=== PATIENT | male | born 1945 | race Caucasian/White ===

== ENCOUNTER 2016-12-04 12:01 | Outpatient (CLI) | payer MEDICARE ==
[2016-12-04 12:38] LABS: Anion Gap 20 mmol/L (10-20); BUN (Urea Nitrogen) 30 mg/dL (8.4-25.7); Calc. Creatinine Clearance 0 mL/min (70-130); Calcium 10.4 mg/dL (7.8-10.44); Carbon Dioxide 29 mmol/L (23-31); Chloride 96 mmol/L (98-107); Estimated GFR-MDRD 29; Glucose 151 mg/dL (83-110); Potassium 4.3 mmol/L (3.5-5.1); Sodium 141 mmol/L (136-145)
== END 2016-12-04 12:02 | disposition home or self-care (01) ==
LOC: MADLAB 12:01
PROVIDERS: ATTEND Internal Medicine Nephrology
DX: I12.9 Hypertensive chronic kidney disease with stage 1 through stage 4 chronic kidney disease, or unspecified chronic kidney disease (principal); N18.3 Chronic kidney disease, stage 3 (moderate)
CPT/HCPCS: 36415; 80048

== ENCOUNTER 2017-01-29 14:20 | Outpatient (CLI) | payer MEDICARE ==
[2017-01-29 14:48] LABS: Anion Gap 21 mmol/L (10-20); BUN (Urea Nitrogen) 28 mg/dL (8.4-25.7); Calc. Creatinine Clearance 0 mL/min (70-130); Carbon Dioxide 29 mmol/L (23-31); Chloride 98 mmol/L (98-107); Estimated GFR-MDRD 42; Glucose 166 mg/dL (83-110); Potassium 4.3 mmol/L (3.5-5.1); Sodium 144 mmol/L (136-145)
== END 2017-01-29 14:21 | disposition home or self-care (01) ==
LOC: MADLAB 14:20
PROVIDERS: ATTEND Internal Medicine Nephrology
DX: I12.9 Hypertensive chronic kidney disease with stage 1 through stage 4 chronic kidney disease, or unspecified chronic kidney disease (principal); N18.3 Chronic kidney disease, stage 3 (moderate); E11.00 Type 2 diabetes mellitus with hyperosmolarity without nonketotic hyperglycemic-hyperosmolar coma (NKHHC); R80.9 Proteinuria, unspecified; E87.2 Acidosis
CPT/HCPCS: 36415; 80048

== ENCOUNTER 2017-02-20 12:28 | Outpatient (CLI) | payer MEDICARE ==
[2017-02-20 13:25] LABS: #Basophils 0.2 thou/uL (0.0-0.2); #Eosinphils 0.3 thou/uL (0.0-0.7); #Lymphocytes 0.9 thou/uL (1.20-3.40); #Neutrophils 9.6 thou/uL (1.40-6.50); %Basophils 1.7 % (0.0-1.0); %Eosinophils 2.9 % (0.0-10.0); %Lymphocytes 7.7 % (21.0-51.0); %Monocytes 8.1 % (0.0-10.0); %Neutrophils 79.6 % (42.0-75.0); Hemoglobin 14.5 g/dL (14.0-18.0); Mean Corpuscular Hemoglobin 29.3 pg (27.0-31.0); Mean Corpuscular Volume 91.7 fl (80.0-94.0); Mean Platelet Volume 9.3 fL (7.4-10.4); Platelet Count 259 thou/uL (130-400); RBC Distribution Width 13.5 % (11.5-14.5); Red Blood Cell (RBC) Count 4.93 mill/uL (4.70-6.10)
[2017-02-20 13:27] LABS: Hemoglobin A1c 6.6 % (4.0-6.0)
[2017-02-20 13:43] LABS: Anion Gap 18 mmol/L (10-20); BUN (Urea Nitrogen) 30 mg/dL (8.4-25.7); Calc. Creatinine Clearance 0 mL/min (70-130); Calcium 10.6 mg/dL (7.8-10.44); Carbon Dioxide 27 mmol/L (23-31); Chloride 99 mmol/L (98-107); Estimated GFR-MDRD 39; Glucose 153 mg/dL (83-110); Potassium 4.4 mmol/L (3.5-5.1); Sodium 140 mmol/L (136-145)
== END 2017-02-20 12:29 | disposition home or self-care (01) ==
LOC: MADLABBHPM 12:28
PROVIDERS: ATTEND Family Medicine
DX: E11.9 Type 2 diabetes mellitus without complications (principal)
CPT/HCPCS: 36415; 80048; 83036; 85025

== ENCOUNTER 2017-02-28 16:31 | Outpatient (CLI) | payer MEDICARE ==
[2017-02-28 16:41] LABS: Bilirubin Negative (Negative); Blood, Urine Negative (Negative); Clarity Clear (Clear); Glucose, Urine (Dipstick) Negative (Negative); Leukocyte Negative (Negative); Nitrite Negative (Negative); Protein, Urine (Dipstick) Negative (Neg-Trace); Urobilinogen 0.2 mg/dL (0.2-1.0)
== END 2017-02-28 16:32 | disposition home or self-care (01) ==
LOC: MADLABBHPM 16:31
PROVIDERS: ATTEND Family Medicine
DX: N18.4 Chronic kidney disease, stage 4 (severe) (principal); N39.0 Urinary tract infection, site not specified
CPT/HCPCS: 81003; 87086

== ENCOUNTER 2017-06-04 13:55 | Outpatient (CLI) | payer MEDICARE ==
[2017-06-04 14:42] LABS: Anion Gap 20 mmol/L (10-20); BUN (Urea Nitrogen) 26 mg/dL (8.4-25.7); Calc. Creatinine Clearance 0 mL/min (70-130); Calcium 9.8 mg/dL (7.8-10.44); Carbon Dioxide 23 mmol/L (23-31); Chloride 102 mmol/L (98-107); Estimated GFR-MDRD 45; Glucose 227 mg/dL (83-110); Potassium 4.4 mmol/L (3.5-5.1); Sodium 141 mmol/L (136-145)
== END 2017-06-04 13:56 | disposition home or self-care (01) ==
LOC: MADLAB 13:55
PROVIDERS: ATTEND Internal Medicine Nephrology
DX: I13.10 Hypertensive heart and chronic kidney disease without heart failure, with stage 1 through stage 4 chronic kidney disease, or unspecified chronic kidney disease (principal); N18.3 Chronic kidney disease, stage 3 (moderate); R60.0 Localized edema
CPT/HCPCS: 36415; 80048

== ENCOUNTER 2017-09-06 07:11 | Emergency (ER) | payer MEDICARE ==
[2017-09-06 08:37] LABS: Bacteria/HPF Rare-Few HPF (None Seen); Bilirubin Negative (Negative); Blood, Urine Trace (Negative); Clarity Clear (Clear); Glucose, Urine (Dipstick) Negative (Negative); INR-International Normal Ratio 1.1; Leukocyte Negative (Negative); Nitrite Negative (Negative); PTT 28.3 SEC (22.9-36.1); Protein, Urine (Dipstick) 30 mg/dL (Neg-Trace); Prothrombin Time 14.4 SEC (12.0-14.7); RBC/HPF 0-3 HPF (0-3); Squamous Epithelial 0-3 HPF (0-3); Urobilinogen 0.2 mg/dL (0.2-1.0); WBC/HPF 0-3 HPF (0-3); pH, Urine 5.5 (5.0-9.0)
[2017-09-06 08:41] LABS: Eosinophils 2 % (0-10); Hemoglobin 14.7 g/dL (14.0-18.0); Lymphocytes 5 % (21-51); MDiff Complete? YES; Mean Corpuscular HGB CONC 32.3 g/dL (32.0-36.0); Mean Corpuscular Hemoglobin 30.1 pg (27.0-31.0); Mean Platelet Volume 8.5 fL (7.4-10.4); Monocytes 5 % (0-10); Neutrophil 88 % (42-75); Platelet Count 182 thou/uL (130-400); RBC Distribution Width 14.4 % (11.5-14.5); White Blood Cell (WBC) Count 18.7 thou/uL (4.8-10.8)
[2017-09-06 08:45] LABS: Amphetamine Not Detected (NotDetected); Barbiturates Screen Not Detected (NotDetected); Benzodiazepine Screen Not Detected (NotDetected); Cocaine Metabolite Screen Not Detected (NotDetected); Medtox Control Line Valid? VALID (VALID); Methadone Not Detected (NotDetected); Methamphetamine Not Detected (NotDetected); Opiate Screen Detected (NotDetected); Oxycodone Screen Not Detected (NotDetected); Phencyclidine (PCP) Not Detected (NotDetected); THC/Cannabinoid Screen Not Detected (NotDetected); Tricyclic Screen Not Detected (NotDetected)
[2017-09-06 08:46] LABS: ALT (SGPT) 11 U/L (8-55); AST (SGOT) 21 U/L (5-34); Albumin 3.8 g/dL (3.4-4.8); Alkaline Phosphatase 80 U/L (40-150); Anion Gap 15 mmol/L (10-20); BUN (Urea Nitrogen) 21 mg/dL (8.4-25.7); Bilirubin, Total 0.9 mg/dL (0.2-1.2); Calc. Creatinine Clearance 0 mL/min (70-130); Calcium 9.7 mg/dL (7.8-10.44); Carbon Dioxide 29 mmol/L (23-31); Chloride 102 mmol/L (98-107); Estimated GFR-MDRD 32; Globulin 2.7 g/dL (2.4-3.5); Glucose 121 mg/dL (83-110); Potassium 3.8 mmol/L (3.5-5.1); Protein, Total 6.5 g/dL (5.8-8.1); Sodium 142 mmol/L (136-145)
[2017-09-06] MEDS ORDERED: Triple Antibiotic Oint 1 GM Packet ONE (08:46)
[2017-09-06 08:52] LABS: D-Dimer Test 6.6 *mcg/mL (0.27-0.43)
[2017-09-06 09:33] LABS: CKMB 4.9 ng/mL (0-6.6); Troponin I 0.078 ng/mL (< 0.028)
--- NOTE | 2017-09-06 09:34 | RAD ---
PORTABLE CHEST: HISTORY: Syncope. FINDINGS: AP chest is obtained on 09/06/17. Comparison is made to previous exam from 03/06/10. AP view chest demonstrates EKG leads seen over the chest. Cardiomegaly is seen. Pulmonary vascular congestion is seen. Radiographic appearance of the chest is stable and unchanged since the previou s exam from 2009. IMPRESSION: Cardiomegaly and pulmonary vascular congestion. No significant acute intrathoracic abnormality is s een. POS: [facility]
[2017-09-06] MEDS ORDERED: Sodium Chloride 0.9% 1,000 ML BAG ONE (09:44)
--- NOTE | 2017-09-06 09:46 | CT ---
CT HEAD NONCONTRAST: HISTORY: Altered mental status. FINDINGS: No comparison. There is no evidence of acute intracranial hemorrhage or infarct. The ventricles ap pear normal in size, shape, and position. Mild chronic ischemic small-vessel disease is apparent wi thin the periventricular white matter of each cerebral hemisphere. There is no mass effect or shift of midline structures. Visualized paranasal sinuses remain well aerated. Well-corticated cortical thickening along the left parietal calvarium is noted. IMPRESSION: No acute intracranial abnormalities are demonstrated on noncontrast CT head. POS: [facility]
[2017-09-06] MEDS ORDERED: Enoxaparin Sodium 80 MG/0.8 ML SYRINGE ONE (09:57)
== END 2017-09-06 11:00 | disposition short-term general hospital (02) ==
LOC: MADERS 07:11
DX: R41.82 Altered mental status, unspecified (principal); D72.829 Elevated white blood cell count, unspecified; R79.89 Other specified abnormal findings of blood chemistry; I25.10 Atherosclerotic heart disease of native coronary artery without angina pectoris; I11.0 Hypertensive heart disease with heart failure; I50.9 Heart failure, unspecified; E78.5 Hyperlipidemia, unspecified; E66.9 Obesity, unspecified; Z79.899 Other long term (current) drug therapy
CPT/HCPCS: 36415; 36416; 51701; 70450; 71010; 80053; 80306; 81003; 81015; 82553; 83605; 83880; 84484; 85025; 85379; 85610; 85730; 93005; 94760; 96372; J1650; J7050

== ENCOUNTER 2017-09-14 03:32 | Emergency (ER) | payer MEDICARE ==
[2017-09-14 04:38] LABS: ALT (SGPT) 13 U/L (8-55); AST (SGOT) 12 U/L (5-34); Albumin 3.4 g/dL (3.4-4.8); Alkaline Phosphatase 76 U/L (40-150); Anion Gap 13 mmol/L (10-20); BUN (Urea Nitrogen) 20 mg/dL (8.4-25.7); Bilirubin, Total 0.5 mg/dL (0.2-1.2); Calc. Creatinine Clearance 0 mL/min (70-130); Calcium 10.2 mg/dL (7.8-10.44); Carbon Dioxide 35 mmol/L (23-31); Chloride 96 mmol/L (98-107); Estimated GFR-MDRD 51; Globulin 2.9 g/dL (2.4-3.5); Glucose 179 mg/dL (83-110); Hemoglobin 12.7 g/dL (14.0-18.0); Mean Corpuscular HGB CONC 32.7 g/dL (32.0-36.0); Mean Corpuscular Hemoglobin 30.7 pg (27.0-31.0); Mean Corpuscular Volume 93.7 fl (80.0-94.0); Mean Platelet Volume 7.6 fL (7.4-10.4); Platelet Count 231 thou/uL (130-400); Potassium 3.9 mmol/L (3.5-5.1); Protein, Total 6.3 g/dL (5.8-8.1); RBC Distribution Width 14.3 % (11.5-14.5); Red Blood Cell (RBC) Count 4.14 mill/uL (4.70-6.10); Sodium 140 mmol/L (136-145); White Blood Cell (WBC) Count 9.1 thou/uL (4.8-10.8)
[2017-09-14 04:39] LABS: Anisocytosis SLIGHT = 6-15 cells (100X) (0-5/hpf); Eosinophils 1 % (0-10); Hypochromia SLIGHT = 6-15 cells (100X) (0-5/hpf); Lymphocytes 10 % (21-51); MDiff Complete? YES; Macrocytosis SLIGHT = 6-15 cells (100X) (0-5/hpf); Monocytes 5 % (0-10); Neutrophil 84 % (42-75); PLT Morphology Comment Appears Adequate; Poikilocytosis SLIGHT = 6-15 cells (100X) (0-5/hpf); RBC Morphology ABNORMAL
[2017-09-14 04:40] LABS: Acetaminophen Less than 6.0 mcg/mL (10.0-30.0); Alcohol Less than 10 mg/dL (Less than 10); Salicylate Less than 8.0 mg/dL (15.0-30.0)
[2017-09-14 04:49] LABS: Bilirubin Negative (Negative); Blood, Urine Trace (Negative); Clarity Clear (Clear); Glucose, Urine (Dipstick) Negative (Negative); Leukocyte Negative (Negative); Nitrite Negative (Negative); Protein, Urine (Dipstick) Negative (Neg-Trace); Specific Gravity, Urine 1.015 (1.005-1.030); Urobilinogen 0.2 mg/dL (0.2-1.0); pH, Urine 5.5 (5.0-9.0)
[2017-09-14 04:52] LABS: Bacteria/HPF None Seen HPF (None Seen); Squamous Epithelial 0-3 HPF (0-3); WBC/HPF 0-3 HPF (0-3)
[2017-09-14 04:54] LABS: Amphetamine Not Detected (NotDetected); Barbiturates Screen Not Detected (NotDetected); Benzodiazepine Screen Not Detected (NotDetected); Cocaine Metabolite Screen Not Detected (NotDetected); Medtox Control Line Valid? VALID (VALID); Methadone Not Detected (NotDetected); Methamphetamine Not Detected (NotDetected); Opiate Screen Detected (NotDetected); Oxycodone Screen Not Detected (NotDetected); Phencyclidine (PCP) Not Detected (NotDetected); THC/Cannabinoid Screen Not Detected (NotDetected); Tricyclic Screen Not Detected (NotDetected)
[2017-09-14] MEDS ORDERED: Metolazone 5 MG TAB PO SCH (08:30)
[2017-09-14] MEDS ORDERED: Bisacodyl 5 MG TAB PO PRN (08:41)
[2017-09-14] MEDS ORDERED: HYDROcodone/Acetaminophen 5/325 mg Tablet PO PRN ×4 (08:45→11:05)
[2017-09-14] MEDS ORDERED: Acetaminophen 325 MG TAB PO PRN ×2 (08:47→11:05)
[2017-09-14] MEDS ORDERED: predniSONE 5 MG TAB PO SCH (09:00)
[2017-09-14] MEDS ORDERED: Allopurinol 100 MG TAB PO SCH ×2 (09:00→15:00)
[2017-09-14] MEDS ORDERED: Carvedilol 6.25 MG TAB PO SCH ×2 (09:00→21:00)
[2017-09-14] MEDS ORDERED: Lisinopril 5 MG TAB PO SCH (09:00)
[2017-09-14] MEDS ORDERED: Clopidogrel Bisulfate 75 MG TAB PO SCH (09:00)
[2017-09-14] MEDS ORDERED: Furosemide 40 MG TAB PO SCH (09:00)
[2017-09-14] MEDS ORDERED: Simvastatin 20 MG TAB PO SCH ×2 (21:00)
[2017-09-15] MEDS ORDERED: Metolazone 5 MG TAB PO SCH (08:30)
[2017-09-15] MEDS ORDERED: predniSONE 5 MG TAB PO SCH ×3 (09:00)
[2017-09-15] MEDS ORDERED: Lisinopril 5 MG TAB PO SCH (09:00)
[2017-09-15] MEDS ORDERED: Furosemide 40 MG TAB PO SCH (09:00)
[2017-09-15] MEDS ORDERED: Clopidogrel Bisulfate 75 MG TAB PO SCH (09:00)
== END 2017-09-14 08:15 | disposition critical access hospital (66) ==
LOC: MADERS 03:32
DX: S80.02XA Contusion of left knee, initial encounter (principal); S80.01XA Contusion of right knee, initial encounter; S90.30XA Contusion of unspecified foot, initial encounter; I11.0 Hypertensive heart disease with heart failure; I50.9 Heart failure, unspecified; G47.30 Sleep apnea, unspecified; I25.10 Atherosclerotic heart disease of native coronary artery without angina pectoris; E78.5 Hyperlipidemia, unspecified; J44.9 Chronic obstructive pulmonary disease, unspecified; Z87.891 Personal history of nicotine dependence; Z79.899 Other long term (current) drug therapy; W19.XXXA Unspecified fall, initial encounter
CPT/HCPCS: 36415; 80053; 80306; 80307; 81003; 81015; 85025

== ENCOUNTER 2017-09-14 07:32 | Inpatient (IN) | payer MEDICARE ==
[2017-09-14] MEDS ORDERED: Triple Antibiotic Oint 1 GM Packet ONE (09:58)
[2017-09-14] MEDS ORDERED: Triple Antibiotic Oint 1 GM Packet TOP SCH (10:45)
[2017-09-14] MEDS ORDERED: Bisacodyl 5 MG TAB PO PRN ×2 (11:01→11:37)
[2017-09-14] MEDS ORDERED: HYDROcodone/Acetaminophen 5/325 mg Tablet PO PRN ×2 (11:10→11:37)
[2017-09-14] MEDS: HYDROcodone/Acetaminophen 5/325 mg Tablet PO PRN ×2 (11:22→19:34)
[2017-09-14] MEDS ORDERED: Milk Of Magnesia 30 ML UDCUP PO PRN (11:35)
[2017-09-14] MEDS ORDERED: ALBUTERAL INHALER FS PRN (13:02)
[2017-09-14] MEDS: Allopurinol 100 MG TAB PO SCH ×2 (14:53→21:02)
[2017-09-14] MEDS ORDERED: Allopurinol 100 MG TAB PO SCH (15:00)
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
[2017-09-14] MEDS ORDERED: Non-Formulary Item 1 EACH (Pravastatin Sodium [Pravastatin Sodium] 40 MG) PO SCH (21:00)
[2017-09-14] MEDS ORDERED: FLU VACC TS2017-18 (>65YR) 0.5 ML SYRINGE IM ONE (21:00)
[2017-09-14] MEDS ORDERED: Carvedilol 6.25 MG TAB PO SCH (21:00)
[2017-09-14] MEDS: Pravastatin Sodium 20 MG TAB PO SCH (21:01)
[2017-09-14] MEDS: Carvedilol 6.25 MG TAB PO SCH (21:02)
[2017-09-14] MEDS: Zolpidem Tartrate 5 MG TAB PO SCH (21:02)
[2017-09-15] MEDS: Furosemide 40 MG TAB PO SCH (08:18)
[2017-09-15] MEDS: Metolazone 5 MG TAB PO SCH (08:18)
[2017-09-15] MEDS: Clopidogrel Bisulfate 75 MG TAB PO SCH (08:18)
[2017-09-15] MEDS: Carvedilol 6.25 MG TAB PO SCH ×2 (08:18→20:16)
[2017-09-15] MEDS: Lisinopril 5 MG TAB PO SCH (08:18)
[2017-09-15] MEDS: Allopurinol 100 MG TAB PO SCH (08:18)
[2017-09-15] MEDS: predniSONE 5 MG TAB PO SCH (08:19)
[2017-09-15] MEDS ORDERED: PREDNISONE PO SCH (09:00)
[2017-09-15] MEDS ORDERED: Enoxaparin Sodium 30 MG/0.3 ML SYRINGE SC SCH (09:00)
[2017-09-15] MEDS ORDERED: LISINOPRIL 2.5 MG PO SCH (09:00)
[2017-09-15] MEDS ORDERED: Metolazone 5 MG TAB PO SCH (09:00)
[2017-09-15] MEDS ORDERED: Non-Formulary Item 1 EACH (Clopidogrel Bisulfate [Clopidogrel] 75 MG) PO SCH (09:00)
[2017-09-15] MEDS ORDERED: Furosemide 40 MG TAB PO SCH (09:00)
[2017-09-15] MEDS ORDERED: CHOLECALCIFEROL 4000 UNIT PO SCH (09:00)
[2017-09-15] MEDS: HYDROcodone/Acetaminophen 5/325 mg Tablet PO PRN ×2 (10:03→19:36)
[2017-09-15] MEDS ORDERED: Sodium Chloride Irrig Solution 250 ML BOT ONE (10:28)
[2017-09-15] MEDS ORDERED: Docusate 100 MG CAP PO PRN (12:28)
[2017-09-15] MEDS: Zolpidem Tartrate 5 MG TAB PO SCH (20:16)
[2017-09-15] MEDS: Pravastatin Sodium 20 MG TAB PO SCH (20:16)
[2017-09-16] MEDS: HYDROcodone/Acetaminophen 5/325 mg Tablet PO PRN ×2 (06:05→16:25)
[2017-09-16 06:35] LABS: #Basophils 0.2 thou/uL (0.0-0.2); #Eosinphils 0.3 thou/uL (0.0-0.7); #Lymphocytes 0.9 thou/uL (1.20-3.40); #Neutrophils 6.8 thou/uL (1.40-6.50); %Basophils 1.9 % (0.0-1.0); %Eosinophils 2.8 % (0.0-10.0); %Lymphocytes 9.6 % (21.0-51.0); %Monocytes 11.3 % (0.0-10.0); %Neutrophils 74.5 % (42.0-75.0); Hemoglobin 12.1 g/dL (14.0-18.0); Mean Corpuscular HGB CONC 31.7 g/dL (32.0-36.0); Mean Corpuscular Hemoglobin 30.1 pg (27.0-31.0); Mean Corpuscular Volume 94.8 fl (80.0-94.0); Mean Platelet Volume 7.5 fL (7.4-10.4); Platelet Count 211 thou/uL (130-400); RBC Distribution Width 14.6 % (11.5-14.5); Red Blood Cell (RBC) Count 4.03 mill/uL (4.70-6.10); White Blood Cell (WBC) Count 9.1 thou/uL (4.8-10.8)
[2017-09-16 06:45] LABS: Anion Gap 14 mmol/L (10-20); Calc. Creatinine Clearance 86 mL/min (70-130); Carbon Dioxide 35 mmol/L (23-31); Chloride 94 mmol/L (98-107); Estimated GFR-MDRD 53; Glucose 152 mg/dL (83-110); Potassium 4.1 mmol/L (3.5-5.1); Sodium 139 mmol/L (136-145)
[2017-09-16] MEDS: Lisinopril 5 MG TAB PO SCH (08:41)
[2017-09-16] MEDS: Metolazone 5 MG TAB PO SCH (08:41)
[2017-09-16] MEDS: predniSONE 5 MG TAB PO SCH (08:41)
[2017-09-16] MEDS: Clopidogrel Bisulfate 75 MG TAB PO SCH (08:41)
[2017-09-16] MEDS: Furosemide 40 MG TAB PO SCH (08:41)
[2017-09-16] MEDS: Allopurinol 100 MG TAB PO SCH (08:42)
[2017-09-16] MEDS: Carvedilol 6.25 MG TAB PO SCH ×2 (08:42→20:16)
[2017-09-16 10:03] LABS: BUN (Urea Nitrogen) 20 mg/dL (8.4-25.7); Calcium 10.1 mg/dL (7.8-10.44)
[2017-09-16] MEDS: Zolpidem Tartrate 5 MG TAB PO SCH (20:16)
[2017-09-16] MEDS: Pravastatin Sodium 20 MG TAB PO SCH (20:16)
[2017-09-17] MEDS: HYDROcodone/Acetaminophen 5/325 mg Tablet PO PRN ×3 (04:43→19:15)
[2017-09-17] MEDS: Allopurinol 100 MG TAB PO SCH (08:25)
[2017-09-17] MEDS: Metolazone 5 MG TAB PO SCH (08:25)
[2017-09-17] MEDS: Carvedilol 6.25 MG TAB PO SCH ×2 (08:25→20:55)
[2017-09-17] MEDS: Clopidogrel Bisulfate 75 MG TAB PO SCH (08:26)
[2017-09-17] MEDS: Lisinopril 5 MG TAB PO SCH (08:26)
[2017-09-17] MEDS: predniSONE 5 MG TAB PO SCH (08:27)
[2017-09-17] MEDS: Furosemide 40 MG TAB PO SCH (08:27)
[2017-09-17] MEDS: Pravastatin Sodium 20 MG TAB PO SCH (20:55)
[2017-09-17] MEDS: Zolpidem Tartrate 5 MG TAB PO SCH (20:55)
[2017-09-18] MEDS: predniSONE 5 MG TAB PO SCH (08:42)
[2017-09-18] MEDS: Metolazone 5 MG TAB PO SCH (08:42)
[2017-09-18] MEDS: Clopidogrel Bisulfate 75 MG TAB PO SCH (08:42)
[2017-09-18] MEDS: Furosemide 40 MG TAB PO SCH (08:42)
[2017-09-18] MEDS: Lisinopril 5 MG TAB PO SCH (08:43)
[2017-09-18] MEDS: Carvedilol 6.25 MG TAB PO SCH ×2 (08:44→20:46)
[2017-09-18] MEDS: Allopurinol 100 MG TAB PO SCH ×2 (08:45→09:14)
[2017-09-18] MEDS: HYDROcodone/Acetaminophen 5/325 mg Tablet PO PRN ×2 (16:34→20:51)
[2017-09-18] MEDS: Zolpidem Tartrate 5 MG TAB PO SCH (20:46)
[2017-09-18] MEDS: Pravastatin Sodium 20 MG TAB PO SCH (20:47)
[2017-09-19] MEDS: Metolazone 5 MG TAB PO SCH (07:47)
[2017-09-19] MEDS: Carvedilol 6.25 MG TAB PO SCH ×2 (07:48→20:42)
[2017-09-19] MEDS: Lisinopril 5 MG TAB PO SCH (07:48)
[2017-09-19] MEDS: Allopurinol 100 MG TAB PO SCH (07:48)
[2017-09-19] MEDS: Clopidogrel Bisulfate 75 MG TAB PO SCH (07:48)
[2017-09-19] MEDS: Furosemide 40 MG TAB PO SCH (07:48)
[2017-09-19] MEDS: predniSONE 5 MG TAB PO SCH (07:49)
[2017-09-19] MEDS: HYDROcodone/Acetaminophen 5/325 mg Tablet PO PRN ×3 (07:50→17:57)
[2017-09-19] MEDS: Pravastatin Sodium 20 MG TAB PO SCH (20:41)
[2017-09-19] MEDS: Zolpidem Tartrate 5 MG TAB PO SCH (20:44)
[2017-09-20] MEDS: HYDROcodone/Acetaminophen 5/325 mg Tablet PO PRN ×4 (02:54→19:18)
[2017-09-20] MEDS: Furosemide 40 MG TAB PO SCH (08:28)
[2017-09-20] MEDS: Clopidogrel Bisulfate 75 MG TAB PO SCH (08:28)
[2017-09-20] MEDS: predniSONE 5 MG TAB PO SCH (08:28)
[2017-09-20] MEDS: Metolazone 5 MG TAB PO SCH (08:28)
[2017-09-20] MEDS: Lisinopril 5 MG TAB PO SCH (08:29)
[2017-09-20] MEDS: Allopurinol 100 MG TAB PO SCH (08:29)
[2017-09-20] MEDS: Carvedilol 6.25 MG TAB PO SCH ×2 (08:29→21:00)
[2017-09-20] MEDS: Zolpidem Tartrate 5 MG TAB PO SCH (21:00)
[2017-09-20] MEDS: Pravastatin Sodium 20 MG TAB PO SCH (21:00)
[2017-09-21] MEDS: HYDROcodone/Acetaminophen 5/325 mg Tablet PO PRN ×3 (04:08→19:14)
[2017-09-21] MEDS: Carvedilol 6.25 MG TAB PO SCH ×2 (08:52→20:58)
[2017-09-21] MEDS: Metolazone 5 MG TAB PO SCH (08:53)
[2017-09-21] MEDS: predniSONE 5 MG TAB PO SCH (08:53)
[2017-09-21] MEDS: Lisinopril 5 MG TAB PO SCH (08:53)
[2017-09-21] MEDS: Furosemide 40 MG TAB PO SCH (08:54)
[2017-09-21] MEDS: Allopurinol 100 MG TAB PO SCH (08:54)
[2017-09-21] MEDS: Clopidogrel Bisulfate 75 MG TAB PO SCH (08:54)
[2017-09-21] MEDS: Bisacodyl 5 MG TAB PO PRN (11:15)
[2017-09-21] MEDS: Zolpidem Tartrate 5 MG TAB PO SCH (20:58)
[2017-09-21] MEDS: Pravastatin Sodium 20 MG TAB PO SCH (20:58)
[2017-09-22] MEDS: HYDROcodone/Acetaminophen 5/325 mg Tablet PO PRN ×4 (05:02→18:34)
[2017-09-22] MEDS: Metolazone 5 MG TAB PO SCH (08:42)
[2017-09-22] MEDS: Carvedilol 6.25 MG TAB PO SCH ×2 (08:42→20:45)
[2017-09-22] MEDS: Allopurinol 100 MG TAB PO SCH (08:42)
[2017-09-22] MEDS: Clopidogrel Bisulfate 75 MG TAB PO SCH (08:43)
[2017-09-22] MEDS: Lisinopril 5 MG TAB PO SCH (08:43)
[2017-09-22] MEDS: predniSONE 5 MG TAB PO SCH (08:43)
[2017-09-22] MEDS: Furosemide 40 MG TAB PO SCH (08:43)
[2017-09-22] MEDS ORDERED: Furosemide 40 MG TAB PO SCH (10:15)
[2017-09-22] MEDS ORDERED: Furosemide 20 MG TAB PO ONE (12:00)
[2017-09-22 20:42] VITALS: BMI 34.2
[2017-09-22] MEDS: Pravastatin Sodium 20 MG TAB PO SCH (20:45)
[2017-09-22] MEDS: Zolpidem Tartrate 5 MG TAB PO SCH (20:45)
[2017-09-23] MEDS: HYDROcodone/Acetaminophen 5/325 mg Tablet PO PRN ×3 (02:29→19:18)
[2017-09-23] MEDS: Allopurinol 100 MG TAB PO SCH (08:33)
[2017-09-23] MEDS: predniSONE 5 MG TAB PO SCH (08:34)
[2017-09-23] MEDS: Metolazone 5 MG TAB PO SCH (08:34)
[2017-09-23] MEDS: Lisinopril 5 MG TAB PO SCH (08:34)
[2017-09-23] MEDS: Furosemide 40 MG TAB PO SCH (08:34)
[2017-09-23] MEDS: Carvedilol 6.25 MG TAB PO SCH ×2 (08:35→20:59)
[2017-09-23] MEDS: Clopidogrel Bisulfate 75 MG TAB PO SCH (08:35)
[2017-09-23] MEDS: Bisacodyl 5 MG TAB PO PRN (11:24)
[2017-09-23] MEDS: Zolpidem Tartrate 5 MG TAB PO SCH (20:59)
[2017-09-23] MEDS: Pravastatin Sodium 20 MG TAB PO SCH (20:59)
[2017-09-24] MEDS: HYDROcodone/Acetaminophen 5/325 mg Tablet PO PRN ×2 (05:22→08:28)
[2017-09-24] MEDS: Bisacodyl 5 MG TAB PO PRN (05:27)
[2017-09-24] MEDS: Clopidogrel Bisulfate 75 MG TAB PO SCH (08:26)
[2017-09-24] MEDS: Metolazone 5 MG TAB PO SCH (08:26)
[2017-09-24] MEDS: Carvedilol 6.25 MG TAB PO SCH ×2 (08:26→20:42)
[2017-09-24] MEDS: Allopurinol 100 MG TAB PO SCH (08:26)
[2017-09-24] MEDS: predniSONE 5 MG TAB PO SCH (08:27)
[2017-09-24] MEDS: Lisinopril 5 MG TAB PO SCH (08:27)
[2017-09-24] MEDS: Furosemide 40 MG TAB PO SCH (08:27)
[2017-09-24] MEDS: Acetaminophen 325 MG TAB PO PRN ×2 (16:34→20:41)
[2017-09-24] MEDS: Pravastatin Sodium 20 MG TAB PO SCH (20:41)
[2017-09-24] MEDS: Zolpidem Tartrate 5 MG TAB PO SCH (20:42)
[2017-09-25] MEDS: Metolazone 5 MG TAB PO SCH (08:37)
[2017-09-25] MEDS: Furosemide 40 MG TAB PO SCH (08:38)
[2017-09-25] MEDS: Carvedilol 6.25 MG TAB PO SCH ×2 (08:38→20:30)
[2017-09-25] MEDS: Lisinopril 5 MG TAB PO SCH (08:38)
[2017-09-25] MEDS: Allopurinol 100 MG TAB PO SCH (08:38)
[2017-09-25] MEDS: Clopidogrel Bisulfate 75 MG TAB PO SCH (08:39)
[2017-09-25] MEDS: predniSONE 5 MG TAB PO SCH (08:39)
[2017-09-25] MEDS: Acetaminophen 325 MG TAB PO PRN ×2 (08:43→20:30)
[2017-09-25] MEDS: Pravastatin Sodium 20 MG TAB PO SCH (20:31)
[2017-09-25] MEDS: Zolpidem Tartrate 5 MG TAB PO SCH (20:31)
[2017-09-26] MEDS: Metolazone 5 MG TAB PO SCH (07:29)
[2017-09-26] MEDS: Allopurinol 100 MG TAB PO SCH (08:51)
[2017-09-26] MEDS: Lisinopril 5 MG TAB PO SCH (08:52)
[2017-09-26] MEDS: Carvedilol 6.25 MG TAB PO SCH ×2 (08:52→20:31)
[2017-09-26] MEDS: Clopidogrel Bisulfate 75 MG TAB PO SCH (08:52)
[2017-09-26] MEDS: predniSONE 5 MG TAB PO SCH (08:52)
[2017-09-26] MEDS: Furosemide 40 MG TAB PO SCH (08:53)
[2017-09-26] MEDS: Acetaminophen 325 MG TAB PO PRN ×2 (08:55→20:30)
[2017-09-26] MEDS ORDERED: Loperamide HCl 2 MG CAP PO PRN (12:32)
[2017-09-26] MEDS: Pravastatin Sodium 20 MG TAB PO SCH (20:31)
[2017-09-26] MEDS: Zolpidem Tartrate 5 MG TAB PO SCH (20:31)
[2017-09-27] MEDS: Acetaminophen 325 MG TAB PO PRN (07:55)
[2017-09-27] MEDS: Metolazone 5 MG TAB PO SCH (08:55)
[2017-09-27] MEDS: Lisinopril 5 MG TAB PO SCH (08:56)
[2017-09-27] MEDS: Allopurinol 100 MG TAB PO SCH (08:56)
[2017-09-27] MEDS: Clopidogrel Bisulfate 75 MG TAB PO SCH (08:56)
[2017-09-27] MEDS: predniSONE 5 MG TAB PO SCH (08:56)
[2017-09-27] MEDS: Carvedilol 6.25 MG TAB PO SCH ×2 (08:56→21:05)
[2017-09-27] MEDS: Furosemide 40 MG TAB PO SCH (08:57)
[2017-09-27] MEDS ORDERED: Loperamide HCl 2 MG CAP PO PRN (10:07)
[2017-09-27] MEDS: Pravastatin Sodium 20 MG TAB PO SCH (21:05)
[2017-09-27] MEDS: Zolpidem Tartrate 5 MG TAB PO SCH (21:05)
[2017-09-28] MEDS: Allopurinol 100 MG TAB PO SCH (08:47)
[2017-09-28] MEDS: Carvedilol 6.25 MG TAB PO SCH ×2 (08:47→20:39)
[2017-09-28] MEDS: Metolazone 5 MG TAB PO SCH (08:47)
[2017-09-28] MEDS: Lisinopril 5 MG TAB PO SCH (08:48)
[2017-09-28] MEDS: predniSONE 5 MG TAB PO SCH (08:48)
[2017-09-28] MEDS: Furosemide 40 MG TAB PO SCH (08:48)
[2017-09-28] MEDS: Clopidogrel Bisulfate 75 MG TAB PO SCH (08:48)
[2017-09-28] MEDS ORDERED: diphenhydrAMINE 25 MG CAP ONE (08:50)
[2017-09-28] MEDS: Bisacodyl 5 MG TAB PO PRN (10:15)
[2017-09-28] MEDS: Ondansetron ODT 4 MG TAB PO PRN ×2 (12:48→18:17)
[2017-09-28] MEDS: Acetaminophen 325 MG TAB PO PRN (12:48)
[2017-09-28] MEDS: HYDROcodone/Acetaminophen 5/325 mg Tablet PO PRN ×2 (14:40→19:29)
[2017-09-28] MEDS: Zolpidem Tartrate 5 MG TAB PO SCH (20:38)
[2017-09-28] MEDS: Pravastatin Sodium 20 MG TAB PO SCH (20:39)
[2017-09-29] MEDS: Acetaminophen 325 MG TAB PO PRN (04:35)
[2017-09-29] MEDS: Clopidogrel Bisulfate 75 MG TAB PO SCH (08:10)
[2017-09-29] MEDS: Allopurinol 100 MG TAB PO SCH (08:10)
[2017-09-29] MEDS: Metolazone 5 MG TAB PO SCH (08:10)
[2017-09-29] MEDS: Carvedilol 6.25 MG TAB PO SCH (08:10)
[2017-09-29] MEDS: Lisinopril 5 MG TAB PO SCH (08:11)
[2017-09-29] MEDS: Furosemide 40 MG TAB PO SCH (08:11)
[2017-09-29] MEDS: predniSONE 5 MG TAB PO SCH (08:12)
[2017-09-29 08:13] VITALS: BP 117/76
[2017-09-29 08:19] VITALS: TEMP 99.1
[2017-09-29] MEDS ORDERED: diphenhydrAMINE 25 MG CAP PO SCH (09:30)
[2017-09-29] MEDS: HYDROcodone/Acetaminophen 5/325 mg Tablet PO PRN (09:57)
--- NOTE | 2017-09-30 01:15 | DIS ---
DATE OF ADMISSION: 09/14/2017 DATE OF DISCHARGE: 09/29/2017 ATTENDING PHYSICIAN: Dr. Radha Del Toro. DISCHARGE DIAGNOSES: 1. Generalized weakness and physical deconditioning. 2. Hallucinations. 3. Bacteremia 4. Multiple falls with scattered abrasions. 5. Chronic obstructive pulmonary disease with hypoxemia. 6. Coronary artery disease. 7. Congestive heart failure. 8. Hypertension. 9. Peripheral vascular disease. 10. Chronic pain syndrome. 11. Chronic sacral decubitus ulcer - Stage I HOSPITAL COURSE: This is a 72-year-old male that is well known to my clinical practice that was admitted by Dr. Troncoso on 09/14/2017, status post hospitalization in [place] for multiple ground level falls, altered mental status and bacteremia. The patient was discharged from [facility] in [place] on 09/13/2017 to home, but subsequently had an additional fall and daughter called EMS and patient was brought to the Emergency Room here in [place]. The patient was admitted directly for swing bed for planned physical therapy and occupational therapy until he was able to safely return home. Since admission, the patient has returned to his baseline mental status. He has not had any further hallucinations. He was treated with an additional 5 days of Levaquin for diagnosis of bacteremia when he was hospitalized in [place]. No further episodes of hallucinations or psychosis have occurred. The patient has been doing well with physical therapy and has improved even from his baseline with regards to mobility and conditioning. The patient did have multiple abrasions, some of which appeared to be somewhat infected on admission. The patient was treated for this with local wound care as well as wound care to his sacral decubitus ulcer which remained stable while he was hospitalized. Upon evaluation today, the patient is anxious to get home to living with his daughter and resuming his usual activities. MEDICATIONS UPON DISCHARGE: 1. Allopurinol 100 mg once daily. 2. DuoNeb 3 mL 4 times daily as needed. 3. Metolazone 5 mg once daily. 4. Vitamin D3 of 4000 units once daily. 5. Dulcolax 10 mg once daily as needed. 6. Hydrocodone 10/325 one tab every 6 hours as needed for pain, with #90 dispensed. 7. Pravastatin 40 mg once nightly. 8. Lisinopril 2.5 mg once daily. 9. Furosemide 40 mg once daily. 10. Clopidogrel 75 mg once daily. 11. Carvedilol 6.25 mg twice daily. 12. Prednisone 2.5 mg once daily. 13. Zolpidem 5 mg once daily at bedtime. ACTIVITY UPON DISCHARGE: As tolerated. DIET UPON DISCHARGE: Diabetic diet, hemoglobin A1c was 7.0. DISPOSITION: The patient will return home with continued home health care with physical therapy and occupational therapy and home oxygen to be used as needed for diagnosis of COPD with occasional hypoxemia was also arranged. FOLLOWUP: The patient will follow up in clinic in 4 weeks as scheduled. DEEPAKD
== END 2017-09-29 13:48 | disposition home health service (06) | DRG 947 ==
LOC: MADMS 07:32
PROVIDERS: ADMIT Family Medicine; ATTEND Family Medicine
DX: R53.1 Weakness (principal); G93.41 Metabolic encephalopathy; L89.152 Pressure ulcer of sacral region, stage 2; I11.0 Hypertensive heart disease with heart failure; J44.9 Chronic obstructive pulmonary disease, unspecified; I50.22 Chronic systolic (congestive) heart failure; R78.81 Bacteremia; R44.3 Hallucinations, unspecified; I25.10 Atherosclerotic heart disease of native coronary artery without angina pectoris; I73.9 Peripheral vascular disease, unspecified; G89.4 Chronic pain syndrome; Z66 Do not resuscitate; G47.33 Obstructive sleep apnea (adult) (pediatric); Z95.5 Presence of coronary angioplasty implant and graft; E66.9 Obesity, unspecified; Z87.891 Personal history of nicotine dependence; F17.290 Nicotine dependence, other tobacco product, uncomplicated; S80.212D Abrasion, left knee, subsequent encounter; S80.211D Abrasion, right knee, subsequent encounter; S80.812D Abrasion, left lower leg, subsequent encounter; S80.811D Abrasion, right lower leg, subsequent encounter; W19.XXXD Unspecified fall, subsequent encounter; Z68.34 Body mass index [BMI] 34.0-34.9, adult
CPT/HCPCS: 36415; 80048; 80053; 80306; 80307; 81003; 81015; 83036; 85025; 94640; G8978-GP-CK; G8979-GP-CI; J1650; J7620; Q0162

== ENCOUNTER 2018-05-01 11:16 | Outpatient (CLI) | payer MEDICARE ==
[2018-05-01 12:03] LABS: #Basophils 0.1 thou/uL (0.0-0.2); #Eosinphils 0.3 thou/uL (0.0-0.7); #Lymphocytes 0.8 thou/uL (1.20-3.40); #Monocytes 0.6 thou/uL (0.11-0.59); #Neutrophils 6.7 thou/uL (1.40-6.50); %Basophils 1.4 % (0.0-1.0); %Eosinophils 3.1 % (0.0-10.0); %Lymphocytes 9.4 % (21.0-51.0); %Monocytes 7.4 % (0.0-10.0); %Neutrophils 78.6 % (42.0-75.0); Hemoglobin 13.1 g/dL (14.0-18.0); Mean Corpuscular HGB CONC 30.7 g/dL (32.0-36.0); Mean Corpuscular Hemoglobin 28.4 pg (27.0-31.0); Mean Corpuscular Volume 92.5 fl (80.0-94.0); Mean Platelet Volume 8.3 fL (7.4-10.4); Platelet Count 181 thou/uL (130-400); RBC Distribution Width 13.8 % (11.5-14.5); Red Blood Cell (RBC) Count 4.62 mill/uL (4.70-6.10); White Blood Cell (WBC) Count 8.6 thou/uL (4.8-10.8)
[2018-05-01 12:18] LABS: ALT (SGPT) 12 U/L (8-55); AST (SGOT) 9 U/L (5-34); Albumin 3.9 g/dL (3.4-4.8); Alkaline Phosphatase 76 U/L (40-150); Anion Gap 15 mmol/L (10-20); BUN (Urea Nitrogen) 20 mg/dL (8.4-25.7); Bilirubin, Total 0.6 mg/dL (0.2-1.2); Calc. Creatinine Clearance 0 mL/min (70-130); Carbon Dioxide 26 mmol/L (23-31); Chloride 101 mmol/L (98-107); Estimated GFR-MDRD 43; Globulin 2.8 g/dL (2.4-3.5); Glucose 268 mg/dL (83-110); Potassium 4.6 mmol/L (3.5-5.1); Protein, Total 6.7 g/dL (5.8-8.1); Sodium 137 mmol/L (136-145); Uric Acid 7.8 mg/dL (3.5-7.2)
[2018-05-01 17:26] LABS: Hemoglobin A1c 7.8 % (4.0-6.0)
== END 2018-05-01 11:17 | disposition home or self-care (01) ==
LOC: MADLABBHPM 11:16
PROVIDERS: ATTEND Family Medicine
DX: E11.9 Type 2 diabetes mellitus without complications (principal); M1A.09X0 Idiopathic chronic gout, multiple sites, without tophus (tophi)
CPT/HCPCS: 36415; 80053; 83036; 84550; 85025

== ENCOUNTER 2018-10-20 15:24 | Outpatient (CLI) | payer MEDICARE ==
[2018-10-20 16:35] LABS: Anion Gap 15 mmol/L (10-20); BUN (Urea Nitrogen) 22 mg/dL (8.4-25.7); Calc. Creatinine Clearance 0 mL/min (70-130); Calcium 9.8 mg/dL (7.8-10.44); Carbon Dioxide 30 mmol/L (23-31); Chloride 98 mmol/L (98-107); Estimated GFR-MDRD 58; Glucose 141 mg/dL (83-110); Potassium 5.6 mmol/L (3.5-5.1); Sodium 137 mmol/L (136-145); Uric Acid 6.7 mg/dL (3.5-7.2)
--- NOTE | 2018-10-20 17:11 | RAD ---
THREE VIEWS OF THE RIGHT FOOT: 10/20/18 COMPARISON: 12/15/13. HISTORY: Third digital paronychia. FINDINGS: Three views of the right foot shows no evidence of acute fracture or dislocation. There is soft tissu e swelling of the distal aspect of the third toe. There are osseous erosions surrounding the great toe metatarsophalangeal joint which could be seconda ry to gout. No osseous erosion of the phalanges of the third toe are seen. IMPRESSION: 1. Soft tissue swelling of the third toe without abnormality of the bones of the third toe. 2. Abnormal osseous erosions surrounding the great toe metatarsophalangeal joint may be secondar y to gout. POS: [facility]
== END 2018-10-20 15:25 ==
LOC: MADLABBHPM 15:24
PROVIDERS: ATTEND Family Medicine
DX: L03.019 Cellulitis of unspecified finger (principal)
CPT/HCPCS: 36415; 80048; 84550; 85652; 87070; 87205

== ENCOUNTER 2019-06-24 16:07 | Outpatient (CLI) | payer MEDICARE ==
--- NOTE | 2019-06-24 16:35 | RAD ---
EXAM: CHEST TWO VIEWS: 06/24/19 HISTORY: COPD exacerbation. COMPARISON: CT angiogram chest. [employer] film dated 09/06/17. FINDINGS: Marked cardiomegaly. Bilateral vascular congestion and small pleural effusions. Appearance is somewha t worse from the prior study. IMPRESSION: Marked cardiomegaly with bilateral vascular congestion and probable small pleural effusions showing s ome worsening from prior 2017 study. No new confluent pneumonia. POS: [facility]
== END 2019-06-24 16:08 | disposition home or self-care (01) ==
LOC: MADRAD 16:07
PROVIDERS: ATTEND Family Medicine
DX: J44.1 Chronic obstructive pulmonary disease with (acute) exacerbation (principal); I51.7 Cardiomegaly; R09.89 Other specified symptoms and signs involving the circulatory and respiratory systems
CPT/HCPCS: 71046

== ENCOUNTER 2019-09-23 14:06 | Outpatient (CLI) | payer MEDICARE ==
[2019-09-23 14:14] LABS: Bilirubin Negative (Negative); Blood, Urine Negative (Negative); Clarity Clear (Clear); Glucose, Urine (Dipstick) Negative (Negative); Leukocyte Negative (Negative); Nitrite Negative (Negative); Protein, Urine (Dipstick) Negative (Neg-Trace); Urobilinogen 0.2 mg/dL (Less than 2)
[2019-09-23 14:29] LABS: Bacteria/HPF Rare-Few HPF (None Seen); RBC/HPF None Seen HPF (0-3); Squamous Epithelial 0-3 HPF (0-3); WBC/HPF None Seen HPF (0-3)
[2019-09-23 14:33] LABS: ALT (SGPT) 8 U/L (8-55); AST (SGOT) 14 U/L (5-34); Albumin 4.2 g/dL (3.4-4.8); Alkaline Phosphatase 91 U/L (40-110); Anion Gap 21 mmol/L (10-20); BUN (Urea Nitrogen) 38 mg/dL (8.4-25.7); Bilirubin, Total 0.4 mg/dL (0.2-1.2); Calc. Creatinine Clearance 0 mL/min (70-130); Calcium 10.5 mg/dL (7.8-10.44); Carbon Dioxide 30 mmol/L (23-31); Chloride 95 mmol/L (98-107); Estimated GFR-MDRD 37; Globulin 2.6 g/dL (2.4-3.5); Glucose 152 mg/dL (83-110); Potassium 4.7 mmol/L (3.5-5.1); Protein, Total 6.8 g/dL (5.8-8.1); Sodium 141 mmol/L (136-145)
[2019-09-23 14:58] LABS: #Basophils 0.1 thou/uL (0.0-0.2); #Eosinphils 0.3 thou/uL (0.0-0.7); #Lymphocytes 1.7 thou/uL (1.20-3.40); #Monocytes 0.6 thou/uL (0.11-0.59); #Neutrophils 5.8 thou/uL (1.40-6.50); %Eosinophils 3.1 % (0.0-10.0); %Lymphocytes 20.1 % (21.0-51.0); %Monocytes 7.2 % (0.0-10.0); %Neutrophils 68.6 % (42.0-75.0); Hemoglobin 12.4 g/dL (14.0-18.0); Mean Corpuscular HGB CONC 30.1 g/dL (32.0-36.0); Mean Corpuscular Hemoglobin 26.8 pg (27.0-31.0); Mean Corpuscular Volume 89.1 fL (78.0-98.0); Platelet Count 170 thou/uL (130-400); Red Blood Cell (RBC) Count 4.64 mill/uL (4.70-6.10); White Blood Cell (WBC) Count 8.4 thou/uL (4.8-10.8)
== END 2019-09-23 14:07 | disposition home or self-care (01) ==
LOC: MADLABBHPM 14:06
PROVIDERS: ATTEND Family Medicine
DX: E11.22 Type 2 diabetes mellitus with diabetic chronic kidney disease (principal); N18.3 Chronic kidney disease, stage 3 (moderate); I50.22 Chronic systolic (congestive) heart failure
CPT/HCPCS: 36415; 80053; 81001; 85025; 87086

== ENCOUNTER 2019-12-01 16:14 | Observation (INO) | payer MEDICARE ==
--- NOTE | 2019-12-01 17:28 | RAD ---
EXAM: XR Chest 1 View Portable PROVIDED CLINICAL HISTORY: Altered mental status, congestive heart failure COMPARISON: 06/24/2019 FINDINGS: Cardiac and mediastinal silhouette is within normal limits. Prominence of the pulmonary vasculature a nd pulmonary interstitium. No focal consolidation, large effusion or pneumothorax evident. IMPRESSION: Findings suggesting congestive failure. Follow-up is recommended.
--- NOTE | 2019-12-01 17:39 | CT ---
Exam: CT brain PROVIDED CLINICAL HISTORY: Altered mental status COMPARISON: 09/06/2017 FINDINGS: The ventricular system is normal in size and morphology. No evidence for intracranial hemorrhage or mass effect. The extracranial soft tissues and osseous structures demonstrate no evidence for an acute abnormality. IMPRESSION: No evidence for intracranial hemorrhage or mass effect.
[2019-12-01 18:14] LABS: ALT (SGPT) 7 U/L (8-55); AST (SGOT) 10 U/L (5-34); Albumin 4.2 g/dL (3.4-4.8); Alkaline Phosphatase 103 U/L (40-110); Anion Gap 15 mmol/L (10-20); BUN (Urea Nitrogen) 22 mg/dL (8.4-25.7); Bilirubin, Total 0.5 mg/dL (0.2-1.2); Calc. Creatinine Clearance 0 mL/min (70-130); Calcium 10.6 mg/dL (7.8-10.44); Carbon Dioxide 32 mmol/L (23-31); Chloride 98 mmol/L (98-107); Estimated GFR-MDRD 40; Glucose 140 mg/dL (83-110); Lipase 18 U/L (8-78); Protein, Total 7.2 g/dL (5.8-8.1); Sodium 141 mmol/L (136-145)
[2019-12-01 18:15] LABS: Acetaminophen Less than 6.0 mcg/mL (10.0-30.0); Alcohol Less than 10 mg/dL (Less than 10); CK (CPK) 86 U/L (30-200); Salicylate Less than 8.0 mg/dL (15.0-30.0)
[2019-12-01 18:32] LABS: #Basophils 0.1 thou/uL (0.0-0.2); #Eosinphils 0.1 thou/uL (0.0-0.7); #Lymphocytes 1.1 thou/uL (1.20-3.40); #Monocytes 0.7 thou/uL (0.11-0.59); #Neutrophils 7.3 thou/uL (1.40-6.50); %Basophils 1.2 % (0.0-1.0); %Eosinophils 1.3 % (0.0-10.0); %Lymphocytes 11.8 % (21.0-51.0); %Monocytes 7.8 % (0.0-10.0); %Neutrophils 77.9 % (42.0-75.0); Anisocytosis SLIGHT = 6-15 cells (100X) (0-5/hpf); Hemoglobin 13.1 g/dL (14.0-18.0); Hypochromia SLIGHT = 6-15 cells (100X) (0-5/hpf); MDiff Complete? YES; Mean Corpuscular HGB CONC 29.1 g/dL (32.0-36.0); Mean Corpuscular Hemoglobin 26.7 pg (27.0-31.0); Mean Corpuscular Volume 91.8 fL (78.0-98.0); Platelet Count 233 thou/uL (130-400); Platelet Morphology Comment Appears Adequate; RBC Distribution Width 14.1 % (11.5-14.5); White Blood Cell (WBC) Count 9.4 thou/uL (4.8-10.8)
[2019-12-01 18:36] LABS: Bilirubin Small (Negative); Blood, Urine Negative (Negative); Clarity Hazy (Clear); Glucose, Urine (Dipstick) Negative (Negative); Leukocyte Negative (Negative); Nitrite Negative (Negative); Protein, Urine (Dipstick) 30 mg/dL (Neg-Trace)
[2019-12-01 18:45] LABS: Bacteria/HPF 1+ HPF (None Seen); RBC/HPF 0-3 HPF (0-3); Squamous Epithelial 0-3 HPF (0-3); WBC/HPF 0-3 HPF (0-3)
[2019-12-01 18:46] LABS: Amphetamine Not Detected (NotDetected); Barbiturates Screen Not Detected (NotDetected); Benzodiazepine Screen Not Detected (NotDetected); Cocaine Metabolite Screen Not Detected (NotDetected); Medtox Control Line Valid? VALID (VALID); Methadone Not Detected (NotDetected); Methamphetamine Not Detected (NotDetected); Opiate Screen Detected (NotDetected); Oxycodone Screen Not Detected (NotDetected); Phencyclidine (PCP) Not Detected (NotDetected); THC/Cannabinoid Screen Not Detected (NotDetected); Tricyclic Screen Not Detected (NotDetected)
[2019-12-01 21:10] VITALS: BMI 33.0
[2019-12-01] MEDS ORDERED: Bisacodyl 5 MG TAB PO PRN (22:13)
[2019-12-01] MEDS ORDERED: traMADol HCl 50 MG TAB PO PRN (22:16)
[2019-12-01] MEDS ORDERED: Acetaminophen 325 MG TAB PO PRN (22:17)
[2019-12-01] MEDS ORDERED: Ondansetron ODT 4 MG TAB PO PRN (22:17)
[2019-12-01] MEDS ORDERED: Ondansetron PF 4 MG/2 ML Vial SLOW IVP PRN (22:17)
[2019-12-01] MEDS ORDERED: Loperamide HCl 2 MG CAP PO PRN ×2 (22:19)
[2019-12-01] MEDS ORDERED: Senokot S 8.6-50 MG TAB PO PRN (22:20)
[2019-12-02] MEDS: Metolazone 5 MG TAB PO SCH (08:43)
[2019-12-02] MEDS: Alogliptin 6.25 MG TAB PO SCH (08:43)
[2019-12-02] MEDS: Clopidogrel Bisulfate 75 MG TAB PO SCH (08:44)
[2019-12-02] MEDS: Allopurinol 100 MG TAB PO SCH (08:44)
[2019-12-02] MEDS: Furosemide 40 MG TAB PO SCH (08:44)
[2019-12-02] MEDS: Carvedilol 6.25 MG TAB PO SCH (08:44)
[2019-12-02] MEDS: Lisinopril 5 MG TAB PO SCH (08:44)
[2019-12-02 11:02] VITALS: BP 143/77; TEMP 97.1
[2019-12-02] MEDS: Prevnar 13-Val Conj/PF 0.5 ML SYRINGE IM ONE (14:13)
[2019-12-02] MEDS ORDERED: Zolpidem Tartrate 5 MG TAB PO SCH (21:00)
[2019-12-02] MEDS ORDERED: Pravastatin Sodium 20 MG TAB PO SCH (21:00)
== END 2019-12-02 15:00 | disposition home health service (06) ==
LOC: MADERS 16:14 → MADMS 19:24
PROVIDERS: ADMIT Family Medicine; ATTEND Family Medicine
DX: R41.0 Disorientation, unspecified (principal); R40.0 Somnolence; J44.9 Chronic obstructive pulmonary disease, unspecified; L89.152 Pressure ulcer of sacral region, stage 2; E78.5 Hyperlipidemia, unspecified; I25.10 Atherosclerotic heart disease of native coronary artery without angina pectoris; I11.0 Hypertensive heart disease with heart failure; I50.9 Heart failure, unspecified; J96.10 Chronic respiratory failure, unspecified whether with hypoxia or hypercapnia; G47.30 Sleep apnea, unspecified; E11.9 Type 2 diabetes mellitus without complications; Z87.891 Personal history of nicotine dependence; Z79.02 Long term (current) use of antithrombotics/antiplatelets; Z79.84 Long term (current) use of oral hypoglycemic drugs; Z79.899 Other long term (current) drug therapy; Z88.6 Allergy status to analgesic agent; Z95.5 Presence of coronary angioplasty implant and graft; Z99.81 Dependence on supplemental oxygen
CPT/HCPCS: 36415; 70450; 71045; 80053; 80306; 80307; 81003; 81015; 82550; 83605; 83690; 84443; 84484; 85025; 87040; 87086; 87804; 93005; 94640; G0378; J7620

== ENCOUNTER 2020-07-25 12:43 | Outpatient (CLI) | payer MEDICARE ==
--- NOTE | 2020-07-25 13:18 | RAD ---
EXAM: Chest PA and lateral: HISTORY: COPD exacerbation COMPARISON: 06/24/2019, 12/01/2019 FINDINGS: Heart: Cardiomegaly Aorta: Unremarkable Pulmonary vessels: Normal Costophrenic angles: Costophrenic angles are clear. Lungs: Hyperinflation with chronic lung parenchymal changes. No masses or consolidation. Pneumothorax: No pneumothorax Osseous structures: No osseous abnormalities IMPRESSION: 1. COPD. Chronic lung parenchymal changes 2. Cardiomegaly without evidence of congestive heart failure.
[2020-07-25 13:33] LABS: ALT (SGPT) 8 U/L (8-55); AST (SGOT) 8 U/L (5-34); Albumin 4.1 g/dL (3.4-4.8); Alkaline Phosphatase 87 U/L (40-110); Anion Gap 16 mmol/L (10-20); BUN (Urea Nitrogen) 51 mg/dL (8.4-25.7); Bilirubin, Total 0.2 mg/dL (0.2-1.2); Calc. Creatinine Clearance 0 mL/min (70-130); Calcium 9.8 mg/dL (7.8-10.44); Carbon Dioxide 26 mmol/L (23-31); Cardiac Risk 3.5 (Less than 4.5); Chloride 101 mmol/L (98-107); Cholesterol 127 mg/dl (< 200 Desired); Estimated GFR-MDRD 21; Globulin 2.6 g/dL (2.4-3.5); Glucose 131 mg/dL (83-110); HDL Cholesterol 36 mg/dL (>60 Neg Risk); LDL Cholesterol, Calculated 68 mg/dL; Potassium 4.2 mmol/L (3.5-5.1); Protein, Total 6.7 g/dL (5.8-8.1); Sodium 139 mmol/L (136-145); Triglycerides 113 mg/dL (Less than 150)
[2020-07-25 14:16] LABS: #Basophils 0.2 thou/uL (0.0-0.2); #Eosinphils 0.4 thou/uL (0.0-0.7); #Lymphocytes 0.9 thou/uL (1.20-3.40); #Monocytes 1.2 thou/uL (0.11-0.59); #Neutrophils 9.7 thou/uL (1.40-6.50); %Basophils 1.3 % (0.0-1.0); %Eosinophils 2.9 % (0.0-10.0); %Lymphocytes 7.1 % (21.0-51.0); %Monocytes 9.9 % (0.0-10.0); %Neutrophils 78.8 % (42.0-75.0); Anisocytosis SLIGHT = 6-15 cells (100X) (0-5/hpf); Hemoglobin 11.9 g/dL (14.0-18.0); Hypochromia SLIGHT = 6-15 cells (100X) (0-5/hpf); MDiff Complete? YES; Mean Corpuscular HGB CONC 29.9 g/dL (32.0-36.0); Mean Corpuscular Hemoglobin 26.7 pg (27.0-31.0); Mean Corpuscular Volume 89.1 fL (78.0-98.0); Mean Platelet Volume 8.6 fL (7.4-10.4); Platelet Count 207 thou/uL (130-400); Platelet Morphology Comment Appears Adequate; RBC Distribution Width 14.4 % (11.5-14.5); Red Blood Cell (RBC) Count 4.45 mill/uL (4.70-6.10); White Blood Cell (WBC) Count 12.3 thou/uL (4.8-10.8)
[2020-07-25 17:43] LABS: Hemoglobin A1c 6.6 % (4.0-6.0)
== END 2020-07-25 12:44 | disposition home or self-care (01) ==
LOC: MADLAB 12:43
PROVIDERS: ATTEND Family Medicine
DX: J44.1 Chronic obstructive pulmonary disease with (acute) exacerbation (principal); I51.7 Cardiomegaly
CPT/HCPCS: 36415; 71046; 80053; 80061; 83036; 83880; 85025

== ENCOUNTER 2020-09-27 12:51 | Outpatient (CLI) | payer MEDICARE ==
[2020-09-27 13:36] LABS: Thyroid Stimulating Hormone 1.4224 uIU/mL (0.35-4.94)
== END 2020-09-27 12:52 | disposition home or self-care (01) ==
LOC: MADLABBHPM 12:51
PROVIDERS: ATTEND Family Medicine
DX: F09 Unspecified mental disorder due to known physiological condition (principal)
CPT/HCPCS: 82140; 82607; 82746; 84443

== ENCOUNTER 2020-12-20 15:56 | Emergency (ER) | payer MEDICARE ==
--- NOTE | 2020-12-20 17:01 | RAD ---
XR Hip Lt 2-3 View INDICATION: Left hip pain COMPARISON: None FINDINGS: Bones: There is diffuse osteopenia. No acute fracture or subluxation is evident. 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 There are severe vascular calcifications seen involving the visualized vasculature. Surrounding soft tissues: There are surgical clips within the left inguinal region. IMPRESSION: 1. No acute osseous abnormality.
--- NOTE | 2020-12-20 17:04 | RAD ---
Exam 1 view pelvis HISTORY: Pain. FINDINGS: There is an incompletely evaluated distal aorta and bilateral common iliac artery stent. Visualized sacral ala and bony pelvis appear to be intact. There is diffuse bone demineralization. Mo derate degenerative change left and right hip. No evidence of a left or right hip fracture. IMPRESSION: Degenerative changes. No fracture.
== END 2020-12-20 18:05 | disposition home or self-care (01) ==
LOC: MADERS 15:56
DX: S76.012A Strain of muscle, fascia and tendon of left hip, initial encounter (principal); L03.317 Cellulitis of buttock; E78.5 Hyperlipidemia, unspecified; I10 Essential (primary) hypertension; Z87.891 Personal history of nicotine dependence; Z79.899 Other long term (current) drug therapy; X58.XXXA Exposure to other specified factors, initial encounter
CPT/HCPCS: 72170

== ENCOUNTER 2021-01-24 16:09 | Emergency (ER) | payer MEDICARE ==
[2021-01-24] MEDS ORDERED: Aspirin Chewable 81 MG TAB ONE (16:48)
[2021-01-24] MEDS ORDERED: Furosemide 40 MG/4 ML VIAL ONE (16:48)
--- NOTE | 2021-01-24 17:03 | RAD ---
EXAM: Single view of the chest HISTORY: Bilateral extremity edema COMPARISON: 12/01/2019 FINDINGS: Single view of the chest shows an enlarged cardiomediastinal silhouette. Atherosclerotic c alcifications are seen in the aorta. There are bilateral pleural effusions with adjacent atelectasis. Degenerative changes are seen in the spine. IMPRESSION: Bilateral pleural effusions with adjacent atelectasis
[2021-01-24 17:07] LABS: ALT (SGPT) 10 U/L (8-55); AST (SGOT) 9 U/L (5-34); Albumin 3.4 g/dL (3.4-4.8); Alkaline Phosphatase 80 U/L (40-110); Anion Gap 12 mmol/L (10-20); BUN (Urea Nitrogen) 22 mg/dL (8.4-25.7); Bilirubin, Total 0.5 mg/dL (0.2-1.2); CK (CPK) 12 U/L (30-200); Calc. Creatinine Clearance 0 mL/min (70-130); Calcium 9.2 mg/dL (7.8-10.44); Carbon Dioxide 35 mmol/L (23-31); Chloride 102 mmol/L (98-107); Globulin 2.4 g/dL (2.4-3.5); Glucose 151 mg/dL (83-110); Potassium 3.3 mmol/L (3.5-5.1); Protein, Total 5.8 g/dL (5.8-8.1); Sodium 146 mmol/L (136-145)
[2021-01-24 17:11] LABS: Hemoglobin 11.6 g/dL (14.0-18.0); Mean Corpuscular HGB CONC 29.8 g/dL (32.0-36.0); Mean Corpuscular Hemoglobin 25.8 pg (27.0-31.0); Mean Corpuscular Volume 86.6 fL (78.0-98.0); Mean Platelet Volume 8.6 fL (7.4-10.4); Platelet Count 182 thou/uL (130-400); Red Blood Cell (RBC) Count 4.48 mill/uL (4.70-6.10); White Blood Cell (WBC) Count 8.4 thou/uL (4.8-10.8)
[2021-01-24 17:12] LABS: Anisocytosis SLIGHT = 6-15 cells (100X) (0-5/hpf); Band 4 % (5-11); Eosinophils 1 % (0-10); Hypochromia SLIGHT = 6-15 cells (100X) (0-5/hpf); Lymphocytes 9 % (21-51); MDiff Complete? YES; Monocytes 6 % (0-10); Neutrophil 80 % (42-75); Ovalocytes SLIGHT = 2-5 cells (100X) (0-1/hpf); Platelet Morphology Comment Appears Adequate; Tear Drops SLIGHT = 2-5 cells (100X) (0-1/hpf)
== END 2021-01-24 17:45 | disposition home or self-care (01) ==
LOC: MADERS 16:09
DX: I11.0 Hypertensive heart disease with heart failure (principal); I50.9 Heart failure, unspecified; E78.5 Hyperlipidemia, unspecified; E66.9 Obesity, unspecified; J44.9 Chronic obstructive pulmonary disease, unspecified; Z87.891 Personal history of nicotine dependence
CPT/HCPCS: 36415; 71045; 80053; 82550; 83880; 84484; 85025; 93005; 94760; 96374; J1940